=== PATIENT | female | born 1945 | race Caucasian/White ===

== ENCOUNTER 2017-07-26 09:00 | Day surgery (SDC) | payer MEDICARE ==
[2017-07-24 11:46] VITALS: BMI 32.1
[~2017-07-26 09:00] MED LIST: LACTATED RINGERS 1,000 ML IV SCH; LIDOCAINE 1% 20 ML VIAL (10MG/ML) FOR IV START INTRADERMA PRN
[2017-07-26 09:31] VITALS: RESP 16; TEMP 97.3
[2017-07-26] MEDS ORDERED: GLUCAGON 1 MG/ML VIAL ONE (10:14)
[2017-07-26] MEDS ORDERED: PROPOFOL 10 MG/ML 20 ML VIAL IV ONE (10:14)
[2017-07-26] MEDS ORDERED: GLYCOPYRROLATE 0.2 MG/ML 2 ML VIAL ONE (10:14)
[2017-07-26] MEDS ORDERED: LIDOCAINE 1% INJ 10MG/ML (20 ML MDV) ONE (10:14)
--- NOTE | 2017-07-26 10:21 | P.GSHP ---
History of Present Illness H&P Date: 07/26/17 Chief Complaint: Screening colonoscopy This is a 72-year-old female referred from Dr. Serg Johnson. Patient presents today for screening colonoscopy. She denies a significant GI complaints. Past Medical History Past Medical History: Cancer, GERD/Reflux, Hyperlipidemia, Supraventricular Tachycardia (SVT), Thyroid Disorder Additional Past Medical History / Comment(s): HX THYROID CA, History of Any Multi-Drug Resistant Organisms: None Reported Past Surgical History: Cardiac Ablation, Hysterectomy, Joint Replacement Additional Past Surgical History / Comment(s): THYROIDECTOMY. TOTAL DANNIE KNEES. CARDIAC ABLATION 10/2013. VULVAR LESIONS BIOPSIED., COLONOSCOPY Past Anesthesia/Blood Transfusion Reactions: No Reported Reaction Smoking Status: Never smoker - Past Family History Mother Family Medical History: No Reported History Medications and Allergies Home Medications Medication Instructions Recorded Confirmed Type Escitalopram Oxalate [Lexapro] 10 mg PO HS 06/28/15 07/26/17 History Multivit-Min/FA/Lycopen/Lutein 1 each PO DAILY 06/28/15 07/26/17 History [Centrum Silver Tablet] Atorvastatin Calcium [Lipitor] 20 mg PO HS 07/14/15 07/26/17 History Levothyroxine Sodium [Synthroid] 75 mcg PO DAILY 08/04/15 07/26/17 History Ubidecarenone [Co Q-10] 100 mg PO DAILY 07/24/17 07/24/17 History Allergies Allergy/AdvReac Type Severity Reaction Status Date / Time adhesive tape Allergy Rash/Hives Verified 07/24/17 11:40 latex Allergy Rash/Hives Verified 07/24/17 11:40 Surgical - Exam Vital Signs Temp Pulse Resp BP Pulse Ox 97.3 F L 82 16 124/77 96 07/26/17 09:31 07/26/17 09:31 07/26/17 09:31 07/26/17 09:31 07/26/17 09:31 - General well developed, no distress - Eyes PERRL - ENT normal pinna - Neck no masses - Respiratory normal expansion - Cardiovascular Rhythm: regular - Abdomen Abdomen: soft, non tender Assessment and Plan Assessment: We'll perform screening colonoscopy.
--- NOTE | 2017-07-26 10:36 | P.OP ---
Date of Procedure: 07/26/17 Preoperative Diagnosis: Screening colonoscopy Postoperative Diagnosis: Diverticulosis Internal and external hemorrhoids Procedure(s) Performed: Colonoscopy Anesthesia: MAC Surgeon: Danial Morales Pathology: none sent Condition: stable Disposition: PACU Description of Procedure: The patient's placed on the endoscopy table in the lateral position. She received IV sedation. Digital rectal exam was performed which revealed internal and external hemorrhoids. The flexible colonoscope was then placed patient anus passed throughout the entire colon. The ileocecal valve was visualized. The cecum, ascending and transverse colon appeared normal. In the descending; there is moderate diverticular changes. Scope was then brought back the rectum and this appeared normal. Scope was withdrawn for patient.
[2017-07-26 10:56] VITALS: BP 113/73
[2017-07-26 11:03] VITALS: PULSE 64
== END 2017-07-26 11:25 | disposition home or self-care (01) ==
LOC: ORWHC2ENDO 09:00
PROVIDERS: ATTEND Surgery
DX: Z12.11 Encounter for screening for malignant neoplasm of colon (principal); K57.30 Diverticulosis of large intestine without perforation or abscess without bleeding; K64.4 Residual hemorrhoidal skin tags; K64.8 Other hemorrhoids; K21.9 Gastro-esophageal reflux disease without esophagitis; E78.5 Hyperlipidemia, unspecified; I47.1 Supraventricular tachycardia; E89.0 Postprocedural hypothyroidism; Z85.850 Personal history of malignant neoplasm of thyroid; F41.9 Anxiety disorder, unspecified; F32.9 Major depressive disorder, single episode, unspecified; Z79.890 Hormone replacement therapy; Z79.899 Other long term (current) drug therapy; Z91.040 Latex allergy status; Z91.048 Other nonmedicinal substance allergy status
CPT/HCPCS: J1610; J2001; J2704; G0121

== ENCOUNTER → 2019-03-03 | Outpatient (CLI) | payer MEDICARE ==
--- NOTE | 2019-03-06 09:21 | MM ---
Reason for exam: screening (asymptomatic). Last mammogram was performed 3 years ago. History: Patient is postmenopausal and has history of other cancer at age 60. Physical Findings: A clinical breast exam by your physician is recommended on an annual basis and results should be correlated with mammographic findings. MG 3D Screening Mammo W/Cad Bilateral CC and MLO view(s) were taken. Prior study comparison: February 28, 2016, bilateral MG screening mammo w CAD. April 15, 2012, bilateral digital screening mammo w/CAD. There are scattered fibroglandular densities. No significant changes when compared with prior studies. ASSESSMENT: Benign, BI-RAD 2 RECOMMENDATION: Routine screening mammogram of both breasts in 1 year.
== END | disposition home or self-care (01) ==
LOC: RADMAMWWP 15:03
PROVIDERS: ATTEND Family Medicine
DX: Z12.31 Encounter for screening mammogram for malignant neoplasm of breast (principal); Z78.0 Asymptomatic menopausal state; Z85.89 Personal history of malignant neoplasm of other organs and systems
CPT/HCPCS: 77063; 77067

== ENCOUNTER 2023-01-02 06:32 | Day surgery (SDC) | payer MEDICARE ==
[~2023-01-02 06:32] MED LIST changes: -LACTATED RINGERS 1,000 ML IV SCH; -LIDOCAINE 1% 20 ML VIAL (10MG/ML) FOR IV START INTRADERMA PRN; +MOXIFLOXACIN HCL 0.5% DROPS 3 ML BTL OP PRN; +TETRACAINE 0.5% OPHTH (PF) DROPS 4 ML BTL OP PRN; +TIMOLOL 0.5% OPHTH DROPS 5 ML BTL OP PRN
[2023-01-02] MEDS: CYCLOPENTOLATE 1% OPHTH SOLN 2 ML BTL OP PRN ×3 (07:10→07:23)
[2023-01-02] MEDS ORDERED: LIDOCAINE 1% (10MG/ML) FOR IV START INTRADERMA PRN (07:11)
[2023-01-02] MEDS ORDERED: LACTATED RINGERS 1,000 ML IV SCH (07:11)
[2023-01-02] MEDS: PHENYLEPHRINE 2.5% OPHTH DRP 2ML OP PRN ×3 (07:13→07:25)
[2023-01-02 07:18] VITALS: TEMP 98.6
[2023-01-02] MEDS ORDERED: DUOVISC KIT (GREEN BOX) INTRAOCULA ONE (08:33)
[2023-01-02] MEDS ORDERED: LIDOCAINE 1% (PF) 10MG/ML VIAL MISCELLANE ONE (08:33)
[2023-01-02] MEDS ORDERED: BALANCED SALT IRRIG SOLN COMB2 15 ML IRRIG.SOLN IRRIGATION ONE (08:33)
[2023-01-02] MEDS ORDERED: MIDAZOLAM 2 MG/2 ML VIAL ONE (08:36)
[2023-01-02] MEDS ORDERED: fentaNYL (PF) 50 MCG/ML 2 ML AMP ONE (08:36)
[2023-01-02] MEDS ORDERED: EPINEPHrine (PF) 0.3 ML in BALANCED SALT IRRIG SOLN COMB2 500 ML IRRIGATION ONE (08:45)
--- NOTE | 2023-01-02 09:11 | P.OP ---
Date of Procedure: 01/02/23 Preoperative Diagnosis: NS & CS & PSC Postoperative Diagnosis: same Procedure(s) Performed: PIOL, OS Implants: [id number] 20.50 Anesthesia: MAC Surgeon: Niko Box Pathology: none sent Condition: stable Disposition: same day Indications for Procedure: blurry vision Operative Findings: no complications
[2023-01-02 09:14] VITALS: RESP 16
[2023-01-02 09:29] VITALS: BP 116/75; PULSE 56
--- NOTE | 2023-01-02 14:17 | OP ---
OPERATIVE REPORT DATE OF SERVICE : 01/02/2023 PREOPERATIVE DIAGNOSIS: Nuclear sclerosis, cortical sclerosis posterior subcapsular cataract, left eye. POSTOPERATIVE DIAGNOSIS: Nuclear sclerosis, cortical sclerosis posterior subcapsular cataract, left eye. PROCEDURES PERFORMED: Phacoemulsification of cataract and intraocular lens implant, left eye. ESTIMATED BLOOD LOSS: Zero. SPECIMEN TAKEN: None. NARRATIVE: After obtaining the appropriate consent, the patient was brought to the operating room where the patient was placed under cardiac monitoring and prepped and draped in the usual sterile manner. At the 5 o'clock position, a 15-degree super sharp blade was used to create a paracentesis followed by instillation of 1% Xylocaine MPF 50:50 mix with BSS into the anterior chamber. This was followed by Amvisc viscoelastic to stabilize the anterior chamber. At the 3 o'clock position a self-sealing corneal flap incision was created using 2.8 mm santos keratome. A cystotome was used to initiate a continuous tear capsulorrhexis which was completed with the Utrata forceps. A Binkhorst cannula was used to hydrodissect the lens nucleus followed by hydrodelineation. Phacoemulsification of the lens was performed utilizing phacochop in 13.31 seconds at 17% power. The remaining cortical material was removed using the irrigation aspiration mode followed by additional 1% Xylocaine MPF into the anterior chamber followed by viscoelastic to stabilize the capsular bag. A [employer]ch [employer] Lomb MX60E 20.5 diopters chamber lens was placed into the capsular bag without difficulty. The remaining viscoelastic material was removed from the anterior chamber with the irrigation/aspiration. Balanced salt solution was used to normalize the intraocular pressure. The incision was checked for watertight integrity. The patient then received 2 drops of 0.5% timolol followed by 2 drops Vigamox, was lightly patched and shielded in the usual manner. There were no complications from the procedure. The patient tolerated the procedure well and was returned to recovery in good condition. MMODL / IJN: [id number] /
== END 2023-01-02 09:40 | disposition home or self-care (01) ==
LOC: OR 06:32
PROVIDERS: ATTEND Ophthalmology
DX: H25.12 Age-related nuclear cataract, left eye (principal); H25.042 Posterior subcapsular polar age-related cataract, left eye; H25.012 Cortical age-related cataract, left eye; I47.1 Supraventricular tachycardia; E07.9 Disorder of thyroid, unspecified; K21.9 Gastro-esophageal reflux disease without esophagitis; E78.5 Hyperlipidemia, unspecified; Z79.890 Hormone replacement therapy; Z91.040 Latex allergy status; Z86.69 Personal history of other diseases of the nervous system and sense organs; Z98.890 Other specified postprocedural states; Z79.899 Other long term (current) drug therapy
CPT/HCPCS: 66984; C1780; J2250; J0171; J3010; J2001

== ENCOUNTER 2023-01-16 06:29 | Day surgery (SDC) | payer MEDICARE ==
[~2023-01-16 06:29] MED LIST changes: +LACTATED RINGERS 1,000 ML IV SCH
[2023-01-16 07:21] VITALS: TEMP 97.3
[2023-01-16] MEDS: CYCLOPENTOLATE 1% OPHTH SOLN 2 ML BTL OP PRN ×3 (07:29→07:41)
[2023-01-16] MEDS: PHENYLEPHRINE 2.5% OPHTH DRP 2ML OP PRN ×3 (07:32→07:44)
[2023-01-16] MEDS ORDERED: fentaNYL (PF) 50 MCG/ML 2 ML AMP ONE (08:12)
[2023-01-16] MEDS ORDERED: MIDAZOLAM 2 MG/2 ML VIAL ONE (08:12)
[2023-01-16] MEDS ORDERED: HYALURONATE SODIUM INTRAOCULAR 1 EACH SYRINGE (12MG/ML) INTRAOCULA ONE (08:21)
[2023-01-16] MEDS ORDERED: EPINEPHrine (PF) 0.3 ML in BALANCED SALT IRRIG SOLN COMB2 500 ML IRRIGATION ONE (08:21)
[2023-01-16] MEDS ORDERED: BALANCED SALT IRRIG SOLN COMB2 15 ML IRRIG.SOLN INTRAOCULA ONE (08:22)
[2023-01-16] MEDS ORDERED: LIDOCAINE 1% (PF) 10MG/ML VIAL MISCELLANE ONE (08:22)
--- NOTE | 2023-01-16 08:41 | P.OP ---
Date of Procedure: 01/16/23 Preoperative Diagnosis: NS & PSC Postoperative Diagnosis: same Procedure(s) Performed: PIOL, OD Implants: [id number] 21.00 Anesthesia: MAC Surgeon: Niko Box Pathology: none sent Condition: stable Disposition: same day Indications for Procedure: blurry vision Operative Findings: no complications
[2023-01-16 09:22] VITALS: BP 112/70; PULSE 58; RESP 16
--- NOTE | 2023-01-16 14:11 | OP ---
OPERATIVE REPORT DATE OF SERVICE : 01/16/2023 PREOPERATIVE DIAGNOSIS: Nuclear sclerosis, posterior subcapsular cataract. POSTOPERATIVE DIAGNOSIS: Nuclear sclerosis, posterior subcapsular cataract. OPERATION: Phacoemulsification of cataract and interocular lens implant, left eye. ESTIMATED BLOOD LOSS: Zero. SPECIMEN TAKEN: None. NARRATIVE: After obtaining the appropriate consent, the patient was brought to the operating room where the patient was placed under cardiac monitoring and prepped and draped in the usual sterile manner. At the 11 o'clock position, a 15-degree super sharp blade was used to create a paracentesis followed by instillation of 1% Xylocaine MPF 50:50 mix with BSS into the anterior chamber. This was followed by Amvisc viscoelastic to stabilize the anterior chamber. At the 9 o'clock position a self-sealing corneal flap incision was created using 2.8 mm santos keratome. A cystotome was used to initiate a continuous tear capsulorrhexis which was completed with the Utrata forceps. A Binkhorst cannula was used to hydrodissect the lens nucleus followed by hydrodelineation. Phacoemulsification of the lens was performed utilizing phacochop in 11.67 seconds at 17.4% power. The remaining cortical material was removed using the irrigation aspiration mode followed by additional 1% Xylocaine MPF into the anterior chamber followed by viscoelastic to stabilize the capsular bag. A Bausch [employer] Lomb MX60E, 21.0 diopters, posterior chamber lens was placed into the capsular bag without difficulty. The remaining viscoelastic material was removed from the anterior chamber with the irrigation/aspiration. Balanced salt solution was used to normalize the intraocular pressure. The incision was checked for watertight integrity. The patient then received 2 drops of 0.5% timolol followed by 2 drops Vigamox, was lightly patched and shielded in the usual manner. There were no complications from the procedure. The patient tolerated the procedure well and was returned to recovery in good condition. MMODL / IJN: [id number] /
== END 2023-01-16 09:46 | disposition home or self-care (01) ==
LOC: OR 06:29
PROVIDERS: ATTEND Ophthalmology
DX: H25.11 Age-related nuclear cataract, right eye (principal); H25.041 Posterior subcapsular polar age-related cataract, right eye; I48.19 Other persistent atrial fibrillation; E07.9 Disorder of thyroid, unspecified; Z79.899 Other long term (current) drug therapy; Z96.1 Presence of intraocular lens
CPT/HCPCS: 66984; C1780; J2250; J0171; J3010; J2001

== ENCOUNTER 2024-05-20 22:11 | Emergency (ER) | payer MEDICARE ==
[2024-05-20 22:40] VITALS: RESP 16; TEMP 97.5
--- NOTE | 2024-05-20 22:50 | ED ---
Dizziness HPI - General Chief Complaint: Dizziness Stated Complaint: Dizziness Time Seen by Provider: 05/20/24 22:36 Source: patient, RN notes reviewed Mode of arrival: ambulatory Limitations: no limitations - History of Present Illness Initial Comments: This is a 78-year-old female who presents to the emergency department for dizziness. States that it started when she woke up this morning. Describes it as a room spinning sensation. She has associated nausea. Denies any chest pain, however she has felt short of breath. States that she also has episodes of diaphoresis. Denies any history of similar symptoms in the past. Also denies a history of vertigo. Denies any headaches or visual changes. She has had a couple of episodes of bladder incontinence, which concerned her. Denies any burning with urination. Denies any back pain or issues with bowel incontinence. MD Complaint: dizziness - Related Data Home Medications Medication Instructions Recorded Confirmed Escitalopram Oxalate [Lexapro] 10 mg PO HS 06/28/15 01/16/23 Multivit-Min/FA/Lycopen/Lutein 1 each PO DAILY 06/28/15 01/16/23 [Centrum Silver Tablet] Atorvastatin Calcium [Lipitor] 20 mg PO HS 07/14/15 01/16/23 Levothyroxine Sodium [Synthroid] 75 mcg PO DAILY 08/04/15 01/16/23 Cholecalciferol (Vitamin D3) 1 tab PO DAILY 01/02/23 01/16/23 [Vitamin D3] Previous Rx's Medication Instructions Recorded Meclizine [Antivert] 25 mg PO QID PRN #30 tab 05/21/24 Ondansetron Odt [Zofran Odt] 4 mg PO Q8HR PRN #20 tab 05/21/24 Allergies Allergy/AdvReac Type Severity Reaction Status Date / Time latex Allergy Rash/Hives Verified 01/16/23 07:32 Review of Systems ROS Statement: Those systems with pertinent positive or pertinent negative responses have been documented in the HPI. ROS Other: All systems not noted in ROS Statement are negative. Past Medical History Past Medical History: Cancer, Eye Disorder, Hyperlipidemia, Osteoarthritis (OA), Supraventricular Tachycardia (SVT), Thyroid Disorder Additional Past Medical History / Comment(s): HX THYROID CA, dannie. cataracts, finishing steroids for URI-residual runny nose per pt. History of Any Multi-Drug Resistant Organisms: None Reported Past Surgical History: Cardiac Ablation, Hysterectomy, Joint Replacement Additional Past Surgical History / Comment(s): THYROIDECTOMY. TOTAL DANNIE KNEES. CARDIAC ABLATION 10/2013. VULVAR LESIONS BIOPSIED., COLONOSCOPY, surg. for repair hiatal lft cataract surgery Past Anesthesia/Blood Transfusion Reactions: No Reported Reaction Past Psychological History: Anxiety, Depression Smoking Status: Never smoker Past Alcohol Use History: None Reported Past Drug Use History: None Reported - Past Family History Mother Family Medical History: No Reported History General Exam Limitations: no limitations General appearance: alert, in no apparent distress Head exam: Present: atraumatic, normocephalic, normal inspection Eye exam: Present: normal appearance, PERRL, EOMI. Absent: scleral icterus, conjunctival injection, periorbital swelling Respiratory exam: Present: normal lung sounds bilaterally. Absent: respiratory distress, wheezes, rales, rhonchi, stridor Cardiovascular Exam: Present: regular rate, normal rhythm, normal heart sounds. Absent: systolic murmur, diastolic murmur, rubs, gallop, clicks GI/Abdominal exam: Present: soft, normal bowel sounds. Absent: distended, tenderness, guarding, rebound, rigid Neurological exam: Present: alert, oriented X3, CN II-XII intact Expanded Cerebellar function: Finger to Nose: Normal, Heel to Briceño: Normal, Romberg: Normal Motor strength exam: RUE: 5, LUE: 5, RLE: 5, LLE: 5 Psychiatric exam: Present: normal affect, normal mood Skin exam: Present: warm, dry, intact, normal color. Absent: rash Course Vital Signs 05/20/24 05/20/24 05/21/24 22:12 22:36 01:01 Temperature 97.5 F L 97.5 F L Pulse Rate 59 L 64 65 Respiratory 18 16 16 Rate Blood Pressure 118/80 127/72 139/88 O2 Sat by Pulse 98 98 98 Oximetry Medical Decision Making - Medical Decision Making This is a 78 year old female who presents to the emergency department for dizziness. Was pt. sent in by a medical professional or institution? @ -No Did you speak to anyone other than the patient for history? @ -No Did you review nursing and triage notes? @ -Yes, and I agree, it is accurate with regards to the patient's symptoms. Were old charts reviewed? @ -No Differential Diagnosis? @ -Differential Dizziness: Benign paroxysmal positional Vertigo, Meniere's disease, otitis media, acoustic neuroma, vertebrobasilar insufficiency, cerebellar stroke, encephalitis, hypovolemic, arrhythmia, coronary artery syndrome, anemia, this is not meant to be an all-inclusive list EKG interpreted by me (3pts min.)? @ -EKG interpreted by me demonstrating the following: Sinus rhythm. Ventricular rate 70 bpm, IA interval 176 ms, QRS duration 95 ms, QTc 424 ms. X-rays interpreted by me (1pt min.)? @ -Chest x-ray obtained, my interpretation identifies no localized consolidations or infiltrates. CT interpreted by me (1pt min.)? @ -CT scan of the brain obtained. My interpretation identifies no evidence of an acute intracranial hemorrhage or mass effect. U/S interpreted by me (1pt. min.)? @ -Not obtained What testing was considered but not performed? (CT, X-rays, U/S, labs)? Why? @ -None What meds were considered but not given? Why? @ -None Did you discuss the management of the patient with other professionals? @ -No Did you reconcile home meds? @ -No Was smoking cessation discussed for >3mins.? @ -No Was critical care preformed (if so, how long)? @ -No Were there social determinants of health that impacted care today? How? (Homelessness, low income, unemployed, alcoholism, drug addiction, transportation, low edu. Level, literacy, decrease access to med. care, detention, rehab)? @ -No Was there de-escalation of care discussed even if they declined? (Discuss DNR or withdrawal of care, Hospice)? @ -No What co-morbidities impacted this encounter? (DM, HTN, Smoking, COPD, CAD, Cancer, CVA, Hep., AIDS, mental health diagnosis, sleep apnea, morbid obesity)? @ -None Was patient admitted / discharged? @ -Discharged. NIH was 0. HINTS exam negative. Lab work unremarkable. COVID, influenza, and RSV test negative. Urinalysis negative for signs of infection. Chest x-ray reveals no acute process. CT scan of the brain also revealed no acute findings. She was given a liter bolus of IV fluids, meclizine, and Zofran. States that she felt significantly improved afterwards. She did not have any episodes of incontinence while she was in the emergency department and the dizziness also essentially resolved. I did offer admission, however she states that she was comfortable with discharge home and would rather follow-up with her PCP in the morning. She was given a prescription for Zofran and meclizine for further symptomatic management. Patient discharged home in stable condition with strict return parameters. Case discussed with ED attending Dr. Urias. Return precautions reviewed in depth, the patient is instructed to return to the emergency department with any new, worsening, or concerning symptoms. Patient verbalized understanding. Undiagnosed new problem with uncertain prognosis? @ -None Drug Therapy requiring intensive monitoring for toxicity (Heparin, Nitro, Insulin, Cardizem)? @ -None Were any procedures done? @ -None Diagnosis/symptom? @ -Dizziness, BPPV, Nausea and vomiting Acute, or Chronic, or Acute on Chronic? @ -Acute Uncomplicated (without systemic symptoms) or Complicated (systemic symptoms)? @ -Uncomplicated Side effects of treatment? @ -None Exacerbation, Progression, or Severe Exacerbation] @ -Not applicable Poses a threat to life or bodily function? @ -Unlikely - Lab Data Result diagrams: 05/20/24 23:02 05/20/24 23:02 Lab Results 05/20/24 05/20/24 05/20/24 Range/Units 23:02 23:02 23:02 WBC 7.4 (3.8-10.6) k/uL RBC 4.34 (3.80-5.40) m/uL Hgb 13.5 (11.4-16.0) gm/dL Hct 40.0 (34.0-46.0) % MCV 92.1 (80.0-100.0) fL MCH 31.0 (25.0-35.0) pg MCHC 33.7 (31.0-37.0) g/dL RDW 12.6 (11.5-15.5) % Plt Count 174 (150-450) k/uL MPV 8.2 Neutrophils % 71 % Lymphocytes % 19 % Monocytes % 5 % Eosinophils % 2 % Basophils % 0 % Neutrophils # 5.3 (1.3-7.7) k/uL Lymphocytes # 1.4 (1.0-4.8) k/uL Monocytes # 0.4 (0-1.0) k/uL Eosinophils # 0.2 (0-0.7) k/uL Basophils # 0.0 (0-0.2) k/uL Sodium 138 (137-145) mmol/L Potassium 3.6 (3.5-5.1) mmol/L Chloride 109 H (98-107) mmol/L Carbon Dioxide 24 (22-30) mmol/L Anion Gap 5 mmol/L BUN 21 H (7-17) mg/dL Creatinine 0.86 (0.52-1.04) mg/dL Est GFR (CKD-EPI)AfAm 75 (>60 ml/min/1.73 sqM) Est GFR (CKD-EPI)NonAf 65 (>60 ml/min/1.73 sqM) Glucose 168 H (74-99) mg/dL Plasma Lactic Acid Ammon 1.3 (0.7-2.0) mmol/L Calcium 9.1 (8.4-10.2) mg/dL Total Bilirubin 0.4 (0.2-1.3) mg/dL AST 18 (14-36) U/L ALT 16 (4-34) U/L Alkaline Phosphatase 86 (38-126) U/L Troponin I (0.000-0.034) ng/mL Total Protein 6.0 L (6.3-8.2) g/dL Albumin 3.8 (3.5-5.0) g/dL TSH 0.805 (0.465-4.680) mIU/L Urine Color Urine Appearance (Clear) Urine pH (5.0-8.0) Ur Specific [place] (1.001-1.035) Urine Protein (Negative) Urine Glucose (UA) (Negative) Urine Ketones (Negative) Urine Blood (Negative) Urine Nitrite (Negative) Urine Bilirubin (Negative) Urine Urobilinogen (<2.0) mg/dL Ur Leukocyte Esterase (Negative) Influenza Type A (PCR) (Not Detectd) Influenza Type B (PCR) (Not Detectd) RSV (PCR) (Not Detectd) SARS-CoV-2 (PCR) (Not Detectd) 05/20/24 05/20/24 05/21/24 Range/Units 23:02 23:02 00:21 WBC (3.8-10.6) k/uL RBC (3.80-5.40) m/uL Hgb (11.4-16.0) gm/dL Hct (34.0-46.0) % MCV (80.0-100.0) fL MCH (25.0-35.0) pg MCHC (31.0-37.0) g/dL RDW (11.5-15.5) % Plt Count (150-450) k/uL MPV Neutrophils % % Lymphocytes % % Monocytes % % Eosinophils % % Basophils % % Neutrophils # (1.3-7.7) k/uL Lymphocytes # (1.0-4.8) k/uL Monocytes # (0-1.0) k/uL Eosinophils # (0-0.7) k/uL Basophils # (0-0.2) k/uL Sodium (137-145) mmol/L Potassium (3.5-5.1) mmol/L Chloride (98-107) mmol/L Carbon Dioxide (22-30) mmol/L Anion Gap mmol/L BUN (7-17) mg/dL Creatinine (0.52-1.04) mg/dL Est GFR (CKD-EPI)AfAm (>60 ml/min/1.73 sqM) Est GFR (CKD-EPI)NonAf (>60 ml/min/1.73 sqM) Glucose (74-99) mg/dL Plasma Lactic Acid Ammon (0.7-2.0) mmol/L Calcium (8.4-10.2) mg/dL Total Bilirubin (0.2-1.3) mg/dL AST (14-36) U/L ALT (4-34) U/L Alkaline Phosphatase (38-126) U/L Troponin I <0.012 (0.000-0.034) ng/mL Total Protein (6.3-8.2) g/dL Albumin (3.5-5.0) g/dL TSH (0.465-4.680) mIU/L Urine Color Colorless Urine Appearance Clear (Clear) Urine pH 6.0 (5.0-8.0) Ur Specific [place] 1.005 (1.001-1.035) Urine Protein Negative (Negative) Urine Glucose (UA) Negative (Negative) Urine Ketones Negative (Negative) Urine Blood Negative (Negative) Urine Nitrite Negative (Negative) Urine Bilirubin Negative (Negative) Urine Urobilinogen <2.0 (<2.0) mg/dL Ur Leukocyte Esterase Negative (Negative) Influenza Type A (PCR) Not Detected (Not Detectd) Influenza Type B (PCR) Not Detected (Not Detectd) RSV (PCR) Not Detected (Not Detectd) SARS-CoV-2 (PCR) Not Detected (Not Detectd) - Radiology Data Radiology results: report reviewed, image reviewed Disposition Clinical Impression: Dizziness, BPPV (benign paroxysmal positional vertigo), Nausea and vomiting Disposition: HOME SELF-CARE Instructions (If sedation given, give patient instructions): Vertigo (ED), Benign Paroxysmal Positional Vertigo (ED), Dizziness (ED) Additional Instructions: Return to the emergency department with any new, worsening, or concerning symptoms. Try taking the meclizine up to 4 times daily as needed for feelings of vertigo/dizziness. Take the Zofran up to every 8 hours as needed for nausea and vomiting. Follow up with your primary care provider in 1-2 days. Prescriptions: Meclizine [Antivert] 25 mg PO QID PRN #30 tab PRN Reason: Vertigo Ondansetron Odt [Zofran Odt] 4 mg PO Q8HR PRN #20 tab PRN Reason: Nausea And Vomiting Is patient prescribed a controlled substance at d/c from ED?: No Referrals: Serg Lucio DO [Primary Care Provider] - 1-2 days Time of Disposition: 00:54
[2024-05-20] MEDS: ONDANSETRON 4 MG/2 ML VIAL IVP STA (23:19)
[2024-05-20] MEDS: MECLIZINE 12.5 MG TAB PO STA (23:20)
[2024-05-20] MEDS: SODIUM CHLORIDE 0.9% 1,000 ML IV STA (23:20)
[2024-05-20 23:25] LABS: Basophils % (A) 0 %; Eosinophils # (A) 0.2 k/uL (0-0.7); Eosinophils % (A) 2 %; HGB 13.5 gm/dL (11.4-16.0); Lymphocytes # (A) 1.4 k/uL (1.0-4.8); Lymphocytes % (A) 19 %; MCHC 33.7 g/dL (31.0-37.0); MCV 92.1 fL (80.0-100.0); Mean Platelet Volume 8.2; Monocytes # (A) 0.4 k/uL (0-1.0); Monocytes % (A) 5 %; Neutrophils # (A) 5.3 k/uL (1.3-7.7); Neutrophils % (A) 71 %; Platelet Count 174 k/uL (150-450); RBC 4.34 m/uL (3.80-5.40); RDW 12.6 % (11.5-15.5); WBC 7.4 k/uL (3.8-10.6)
[2024-05-20 23:38] LABS: ALT 16 U/L (4-34); AST 18 U/L (14-36); African American GFR (CKD) 75 (>60 ml/min/1.73 sqM); Albumin 3.8 g/dL (3.5-5.0); Alkaline Phosphatase 86 U/L (38-126); Anion Gap 5 mmol/L; Blood Urea Nitrogen 21 mg/dL (7-17); Calcium 9.1 mg/dL (8.4-10.2); Carbon Dioxide 24 mmol/L (22-30); Chloride 109 mmol/L (98-107); Glucose 168 mg/dL (74-99); Non-African American GFR(CKD) 65 (>60 ml/min/1.73 sqM); Potassium 3.6 mmol/L (3.5-5.1); Sodium 138 mmol/L (137-145); Total Bilirubin 0.4 mg/dL (0.2-1.3)
--- NOTE | 2024-05-21 00:08 | CT ---
EXAM: CT Head Without Intravenous Contrast CLINICAL HISTORY: ITS.REASON CT Reason: Dizziness TECHNIQUE: Axial computed tomography images of the head/brain without intravenous contrast. CTDI is 49.2 mGy and DLP is 1110.4 mGy-cm. This CT exam was performed using one or more of the following dose reduction techniques: automated exposure control, adjustment of the mA and/or kV according to patient size, and/or use of iterative reconstruction technique. COMPARISON: No relevant prior studies available. FINDINGS: No acute intracranial hemorrhage. No midline shift or mass effect. The territorial lam-white matter differentiation is maintained throughout. Age-related cerebral volume loss. Periventricular and subcortical white matter hypoattenuation, consistent with chronic microangiopathy. The visualized orbits appear grossly unremarkable. The calvarium is intact. The visualized paranasal sinuses and mastoid air cells are grossly clear. IMPRESSION: No acute intracranial hemorrhage, midline shift, or mass effect.
--- NOTE | 2024-05-21 00:22 | XR ---
EXAM: XR Chest, 2 Views CLINICAL HISTORY: ITS.REASON XR Reason: WILMER TECHNIQUE: Frontal and lateral views of the chest. COMPARISON: No relevant prior studies available. FINDINGS: Lungs: Unremarkable. No consolidation. Pleural space: Unremarkable. No pneumothorax. Heart: Unremarkable. No cardiomegaly. Mediastinum: Unremarkable. Normal mediastinal contour. Bones/joints: Unremarkable. No acute fracture. IMPRESSION: No consolidation.
[2024-05-21 00:39] LABS: Appearance,Urine Clear (Clear); Bilirubin,Urine Negative (Negative); Blood,Urine Negative (Negative); Color,Urine Colorless; Glucose,Urine (UA) Negative (Negative); Ketones,Urine Negative (Negative); Leukocyte Esterase,Urine Negative (Negative); Nitrite,Urine Negative (Negative); Protein,Urine Negative (Negative); Specific Gravity,Urine 1.005 (1.001-1.035); Urobilinogen,Urine <2.0 mg/dL (<2.0)
[2024-05-21 01:03] VITALS: BP 139/88; PULSE 65
[2024-05-21] MEDS: ONDANSETRON 4 MG ODT STARTER PACK 2 TAB BTL PO STA (01:03)
== END 2024-05-21 01:06 | disposition home or self-care (01) ==
LOC: EC 22:11
DX: H81.10 Benign paroxysmal vertigo, unspecified ear (principal); R11.2 Nausea with vomiting, unspecified; Z91.040 Latex allergy status
CPT/HCPCS: 93005; 80053; 84443; 83605; 84484; 85025; 87636; 71046; 70450; 99285; 96374; 96361; J2405; 36415; 81003